=== PATIENT | male | born 1955 | race Hispanic/Latino ===

== ENCOUNTER 2018-09-20 16:46 | Emergency (ER) | payer BC ==
[2018-09-20 16:49] VITALS: BMI 36.3
[2018-09-20 16:53] VITALS: O2SAT 97
--- NOTE | 2018-09-20 17:37 | C.PDOC ---
History Of Present Illness 63 y/o male presents to the ED for evaluation of wound sustained today. Patient reports he hit the top of scalp on a metal staircase. Patient denies any associated LOC, vomiting, severe headache, visual loss, change in speech, or focal deficit. Tetanus is up to date, last received 3 years ago. Time Seen by Provider: 09/20/18 16:57 Chief Complaint (Nursing): Abnormal Skin Integrity History Per: Patient History/Exam Limitations: no limitations Onset/Duration Of Symptoms: Mins Current Symptoms Are (Timing): Still Present Past Medical History Reviewed: Historical Data, Nursing Documentation, Vital Signs Vital Signs: Last Vital Signs Temp 98.3 F 09/20/18 16:49 Pulse 82 09/20/18 16:49 Resp 18 09/20/18 16:49 BP 181/78 H 09/20/18 16:49 Pulse Ox 97 09/20/18 16:49 - Medical History PMH: Hyperlipidemia Surgical History: Appendectomy Family History: States: No Known Family Hx - Social History Hx Alcohol Use: No Hx Substance Use: No - Immunization History Hx Tetanus Toxoid Vaccination: Yes (2 YEARS AGO) Hx Influenza Vaccination: No Hx Pneumococcal Vaccination: No Review Of Systems Constitutional: Negative for: Fever Eyes: Negative for: Vision Change Cardiovascular: Negative for: Chest Pain Respiratory: Negative for: Shortness of Breath Gastrointestinal: Negative for: Nausea, Vomiting Skin: Positive for: Lesions (laceration to top of scalp) Neurological: Negative for: Weakness, Headache, Dizziness Physical Exam - Physical Exam Appears: Non-toxic, No Acute Distress Skin: Warm, Dry Head: Normacephalic, Laceration (2 cm superficial laceration to the top of scalp, no active bleeding) Eye(s): bilateral: Normal Inspection, PERRL, EOMI Ear(s): Bilateral: Normal Oral Mucosa: Moist Neck: Normal ROM Chest: Symmetrical Respiratory: No Accessory Muscle Use, Other (speaking in full sentences) Extremity: Bilateral: Atraumatic, Normal ROM Neurological/Psych: Oriented x3, Normal Speech, Normal Cranial Nerves (grossly intact) ED Course And Treatment O2 Sat by Pulse Oximetry: 97 (RA) Pulse Ox Interpretation: Normal Progress Note: Wound repaired by me. Patient is stable for discharge home. Educated regarding diagnosis and wound care instructions. Laceration - Laceration Repair scalp Wound Length (In cm): 2 Description Of Wound: Linear Wound Cleansed With: Sterile Saline Wound Examination: Irrigated With Saline, No FB With Wound Exploration Wound Closure: Steri Strips, Skin Glue (Dermabond) Wound Complexity: Simple Disposition - Disposition Disposition: HOME/ ROUTINE Disposition Time: 17:32 Condition: STABLE Additional Instructions: Follow up with PMD within 1-2 days. Return to ED if feel worse. Instructions: Laceration Repair With Glue (DC) Forms: [employer] (Czech) - Clinical Impression Clinical Impression: Scalp laceration - PA / DISTRIBUTION FIELD TECHNICIAN / Resident Statement MD/DO has reviewed & agrees with the documentation as recorded. - Scribe Statement The provider has reviewed the documentation as recorded by the Dakotaibrebeka Leavitt All medical record entries made by the Scribe were at my direction and personally dictated by me. I have reviewed the chart and agree that the record accurately reflects my personal performance of the history, physical exam, medical decision making, and the department course for this patient. I have also personally directed, reviewed, and agree with the discharge instructions and disposition.
[2018-09-20 17:39] VITALS: BP 148/89; PULSE 92; RESP 20; TEMP 98.2
== END 2018-09-20 17:47 | disposition home or self-care (01) ==
LOC: C.ER 16:46
DX: S01.01XA Laceration without foreign body of scalp, initial encounter (principal); W22.8XXA Striking against or struck by other objects, initial encounter